=== PATIENT | female | born 1955 | race Two or more races ===

== ENCOUNTER 2024-04-13 13:21 | Inpatient (IN) | payer OTHER ==
[~2024-04-13] VITALS: Ht 165.1 cm; Wt 63.5 kg
[2024-04-13] MEDS ORDERED: ATORVASTATIN CA10 MG (13:37)
[2024-04-13] MEDS ORDERED: ONDANSETRON HCL 2 MG/ML VIAL ONE (14:44)
[2024-04-13] MEDS ORDERED: FAMOtidine 200mg/20ml VIAL ONE (14:44)
[2024-04-13] MEDS ORDERED: ONDANSETRON HCL 2 MG/ML VIAL IV ONE (14:45)
[2024-04-13] MEDS ORDERED: 0.9 % SODIUM CHLORIDE 500 ML IV ONE (14:45)
[2024-04-13] MEDS ORDERED: FAMOtidine 10 MG/ML (4ML VIAL) IV ONE (14:45)
[2024-04-13 15:34] LABS: HEMATOCRIT 39.8 % (36.0-45.00); MEAN CELL VOLUME 82.4 fL (80.00-100.00); MEAN CORPUSCULAR HEMOGLOBIN 28.9 pg (27.00-32.0); RED BLOOD COUNT 4.83 M/uL (4.00-6.00); RED CELL DISTRIBUTION WIDTH 12.9 % (11.5-14.5)
[2024-04-13 15:37] LABS: PLATELET COUNT 81 K/uL (150-450)
[2024-04-13 15:49] LABS: ALBUMIN 4.1 gm/dL (3.4-5.0); BILIRUBIN TOTAL 1.2 mg/dL (0.3-1.2); CALCIUM 9.1 mg/dL (8.5-10.1); CREATININE SERUM 1.15 mg/dL (0.55-1.02); GFR 46.78; GLOBULINA 4.6 G/DL (2.4-3.5); POTASSIUM 3.29 mEq/L (3.5-5.1); TOTAL PROTEIN 8.7 gm/dL (6.4-8.2)
[2024-04-13 16:36] LABS: HEMATOCRIT 36.7 % (36.0-45.00); HEMOGLOBIN 13.1 g/dL (12.0-15.00); MEAN CELL VOLUME 82.7 fL (80.00-100.00); MEAN CORPUSCULAR HEMOGLOBIN 29.5 pg (27.00-32.0); MEAN CORPUSCULAR HGB CONC 35.7 g/dl (32.0-36.0); RED BLOOD COUNT 4.43 M/uL (4.00-6.00); RED CELL DISTRIBUTION WIDTH 12.8 % (11.5-14.5)
[2024-04-13 16:39] LABS: PLATELET COUNT 70 K/uL (150-450)
[2024-04-13 18:25] LABS: URINE APPEARANCE Clear; URINE BILIRRUBIN Negative (NEGATIVE); URINE BLOOD Trace; URINE GLUCOSE Negative (NEGATIVE); URINE LEUKOCYTE Trace
[2024-04-13 18:27] LABS: URINE BACTERIA 17.6 uL (0.0-1933); URINE EPITHELIAL CELLS 41.4 uL (0.0-38.8); URINE RBC 43.3 uL (0.0-20.8); URINE WBC 13.7 uL (0.0-23.2)
[2024-04-13] MEDS ORDERED: 0.9 % SODIUM CHLORIDE 1,000 ML IV SCH (19:30)
[2024-04-13] MEDS ORDERED: DEXTROSE 50 % IN WATER 0.5 G/ML DISP.SYRIN IV PRN (19:30)
[2024-04-13] MEDS ORDERED: INSULIN LISPRO 1,000 UNIT/10 ML UNITS SUBCUTANEO PRN (19:30)
[2024-04-13] MEDS ORDERED: METHYLPREDNISOLONE SOD SUCC 40 MG VIAL IV SCH (19:35)
[2024-04-13] MEDS ORDERED: hydrALAZINE HCL 20 MG VIAL IV PRN (19:45)
[2024-04-13] MEDS ORDERED: MORPHINE SULFATE 2 MG/ML CARTRIDGE IV PRN (19:45)
[2024-04-13] MEDS ORDERED: ACETAMINOPHEN 500 MG GEL..CAP PO PRN (19:45)
[2024-04-13] MEDS ORDERED: ONDANSETRON HCL 4 MG in 0.9 % SODIUM CHLORIDE 50 ML IV PRN (19:45)
[2024-04-13 20:04] LABS: URINE PROTEIN 100 (NEGATIVE)
[2024-04-13 20:05] LABS: URINE NITRATE NEGATIVE
[2024-04-13 20:06] LABS: URINE MUCUS SCANT
[2024-04-13] MEDS ORDERED: METHYLPREDNISOLONE SOD SUCC 40 MG VIAL ONE (20:18)
[2024-04-14 08:13] LABS: HEMATOCRIT 37.5 % (36.0-45.00); HEMOGLOBIN 13.2 g/dL (12.0-15.00); MEAN CELL VOLUME 82.6 fL (80.00-100.00); MEAN CORPUSCULAR HGB CONC 35.1 g/dl (32.0-36.0); RED BLOOD COUNT 4.54 M/uL (4.00-6.00); RED CELL DISTRIBUTION WIDTH 13.1 % (11.5-14.5)
[2024-04-14 08:28] LABS: INR 1.03; PARTIAL THROMBOPLASTIN TIME 27.6 SECONDS (22.0-34.0); PROTHROMBIN TIME 10.8 SECONDS (9.0-11.5)
[2024-04-14 08:37] LABS: ERYTHROCYTE SEDIMENTATION RATE 26 mm/hr
[2024-04-14] MEDS ORDERED: PANTOPRAZOLE SODIUM 40 MG in 0.9 % SODIUM CHLORIDE 8 ML IV PUSH SCH (09:00)
[2024-04-14] MEDS ORDERED: ATORVASTATIN CALCIUM 10 MG TABLET PO SCH (09:00)
[2024-04-14 09:13] LABS: PLATELET COUNT 63 K/uL (150-450)
[2024-04-14 09:19] LABS: ALBUMIN 3.3 gm/dL (3.4-5.0); BILIRUBIN TOTAL 0.89 mg/dL (0.3-1.2); BILIRUBIN,CONJUGATED 0.28 mg/dL (0.0-0.2); BILIRUBIN,UNCONJUGATED 0.61 mg/dL (0.0-0.6); CALCIUM 8.7 mg/dL (8.5-10.1); CHOL HDL RATIO 6.7 (0-5.0); CREATININE SERUM 0.74 mg/dL (0.55-1.02); GFR 77.81; GLOBULINA 3.9 G/DL (2.4-3.5); POTASSIUM 4.1 mEq/L (3.5-5.1); TOTAL PROTEIN 7.2 gm/dL (6.4-8.2)
[2024-04-14 09:49] LABS: C-REACTIVE PROTEIN 0.91 MG/DL (0.00-0.29)
[2024-04-14] MEDS ORDERED: PANTOPRAZOLE SODIUM 40 MG/VIAL VIAL ONE (10:32)
[2024-04-14 15:20] LABS: URINE APPEARANCE Clear; URINE BILIRRUBIN Negative (NEGATIVE); URINE BLOOD Small; URINE GLUCOSE Negative (NEGATIVE); URINE LEUKOCYTE Trace; URINE NITRATE Negative; URINE PROTEIN 30 (NEGATIVE)
[2024-04-14 15:23] LABS: URINE BACTERIA 17.6 uL (0.0-1933); URINE RBC 35.8 uL (0.0-20.8); URINE WBC 10.3 uL (0.0-23.2)
[2024-04-15 06:19] LABS: HEMATOCRIT 34.2 % (36.0-45.00); HEMOGLOBIN 11.9 g/dL (12.0-15.00); MEAN CELL VOLUME 82.7 fL (80.00-100.00); MEAN CORPUSCULAR HEMOGLOBIN 28.9 pg (27.00-32.0); MEAN CORPUSCULAR HGB CONC 34.9 g/dl (32.0-36.0); RED BLOOD COUNT 4.14 M/uL (4.00-6.00); RED CELL DISTRIBUTION WIDTH 12.4 % (11.5-14.5)
[2024-04-15 07:40] LABS: PLATELET COUNT 62 K/uL (150-450)
[2024-04-15] MEDS ORDERED: PANTOPRAZOLE SODIUM 40 MG/VIAL VIAL ONE (07:55)
[2024-04-15 12:43] LABS: ob NEGATIVE (NEGATIVE)
== END 2024-04-15 19:59 | disposition home or self-care (01) | DRG 866 ==
LOC: ER 13:22 → MEDJ 20:12
PROVIDERS: General Practice; ADMIT Internal Medicine; ATTEND Internal Medicine
DX: A90 Dengue fever [classical dengue] (principal); D61.818 Other pancytopenia; E86.0 Dehydration; D69.6 Thrombocytopenia, unspecified

== ENCOUNTER 2024-11-07 09:55 | Emergency (ER) | payer OTHER ==
[~2024-11-07] VITALS: Ht 165.1 cm; Wt 65.8 kg
[~2024-11-07 09:55] MED LIST: ATORVASTATIN CA10 MG
[2024-11-07] MEDS ORDERED: SILVADENE20 GM TOP (10:16)
[2024-11-07 10:20] VITALS: BP 144/76; O2SAT 98
== END 2024-11-07 10:25 | disposition home or self-care (01) ==
LOC: ER 09:58
DX: T23.102A Burn of first degree of left hand, unspecified site, initial encounter (principal); T23.132A Burn of first degree of multiple left fingers (nail), not including thumb, initial encounter; T79.8XXA Other early complications of trauma, initial encounter; X08.8XXA Exposure to other specified smoke, fire and flames, initial encounter; Y93.89 Activity, other specified; Y92.89 Other specified places as the place of occurrence of the external cause; Y99.8 Other external cause status; Z88.0 Allergy status to penicillin